=== PATIENT | female | born 1975 | race Caucasian/White ===

== ENCOUNTER 2024-01-28 01:57 | Inpatient (IN) | payer OTHER, SELFPAY ==
[2024-01-27 16:09] VITALS: BP 201/112
[2024-01-27 16:43] LABS: % Basophils 0.5 % (0-2); % Eosinophils 2.8 % (0-6); % Immature Granulocytes 0.4 % (0-0.5); % Lymphocytes 30.9 % (20.5-51.1); % Monocytes 5.4 % (1.7-9.3); Absolute Basophils 0.1 10^3/uL (0-0.2); Absolute Eosinophils 0.3 10^3/uL (0-0.7); Absolute Monocytes 0.5 10^3/uL (0.1-0.6); Absolute Neutrophils 5.9 10^3/uL (1.4-6.5); Hematocrit 38.2 % (37.0-47.0); Hemoglobin 13.1 g/dL (12.0-16.0); Mean Corp Hgb Conc. 34.3 g/dL (33.0-37.0); Mean Corpuscular Hgb 28.1 pg (27.0-31.0); Mean Platelet Volume 8.8 fL (7.4-10.4); Nucleated Red Blood Cells % 0 %; Platelet Count 306 10^3/uL (130-400); Red Blood Cell Count 4.66 10^6/uL (4.20-5.40); Red Cell Dist. Width 14.3 % (11.5-14.5); White Blood Cell Count 9.8 10^3/uL (4.8-10.8)
[2024-01-27 16:52] LABS: ALT (SGPT) 34 U/L (0-35); AST (SGOT) 32 U/L (14-36); Albumin 4.4 g/dl (3.5-5.0); Alkaline Phosphatase 107 U/L (38-126); Blood Urea Nitrogen 14 mg/dl (7-17); Calcium 8.5 mg/dl (8.4-10.2); Carbon Dioxide 26 mmol/L (22-30); Chloride 105 mmol/L (98-107); Glucose 101 mg/dl (70-99); Potassium 3.8 mmol/L (3.5-5.1); Sodium 136 mmol/L (135-145); Total Bilirubin 0.9 mg/dl (0.2-1.3); Total Protein 6.9 g/dl (6.3-8.2); eGFR > 60.00
[2024-01-27 17:03] LABS: Troponin I 0.013 ng/ml
--- NOTE | 2024-01-27 19:26 | ED.GENMED ---
History of Present Illness
<Tabatha Jurado ALIGNER TYPEWRITER - Last Filed: 01/28/24 00:00>
General
Chief Complaint: Breathing Problem
Source: patient
Exam Limitations: none
Time Seen by Provider: 01/27/24 19:25
Nursing documentation reviewed up to this point in time: agreed with
Travel History
Have you had any contact with someone who has COVID-19?: No
Do you have any symptoms of coronavirus? Fever > 100 degrees, chills, cough, shortness of breath, sore throat, loss of taste or smell, muscle aches, or headache?: No
History of Present Illness
History of Present Illness:
48-year-old female with history of migraines states she has progressively worsening SOB and fatigue since yesterday. Walking up steps last night, today, walking across the room. 5,4 and 3 days ago had fever, body aches, chills, with neg home Covid
tests. Denies chest pain, n/v/d/c. No recent travel.
Past History
<aTbatha Jurado, ALIGNER TYPEWRITER - Last Filed: 01/28/24 00:00>
Past History
ED Past Medical History: None
ED Past Surgical History: Tonsilectomy
Social History
Tobacco: Non-smoker
Alcohol: Occasional
Living: with family
Employment: Employed
Review of Systems
<Tabatha Jurado, ALIGNER TYPEWRITER - Last Filed: 01/28/24 00:00>
Review of Systems
Allergies reviewed?: Yes
All Other Systems: ROS reviewed and negative except as documented in HPI and ROS
Constitutional: Reports fatigue; Denies fever
Respiratory: Reports trouble breathing; Denies cough
Cardiac: Denies chest pain or syncope
ABD/GI: Denies abdominal pain or nausea
: Denies dysuria or difficulty voiding
Musculoskeletal: Reports no symptoms
Skin: Reports no symptoms
Neurological: Reports no symptoms
Phy Exam
<Tabatha Jurado, ALIGNER TYPEWRITER - Last Filed: 01/28/24 00:00>
Physical Exam
Physical Exam:
GENERAL: No acute distress. A&Ox3.
CONSTITUTIONAL: Afebrile.
EYES: PERRL, conjunctivae normal
Neck: Supple
ENMT: moist mucus membranes, Pharynx nl
RESPIRATORY: Regular respirations, nonlabored, lungs clear.
CARDIOVASCULAR: Regular rate and rhythm, no murmurs, no rubs.
GI: Soft, nontender, normal BS
MUSCULOSKELETAL: Moves with ease. Well perfused.
SKIN: Warm, dry, pink
PSYCH: Normal mood and affect. Well kept, interactive and appropriate
NEUROLOGIC: Awake, alert and oriented. No focal neurological deficits
Scores
<Tabatha Jurado, ALIGNER TYPEWRITER - Last Filed: 01/28/24 00:00>
Heart Failure Risk
Heart Failure Risk Score: Yes
History of Stroke or TIA: No
History of intubation for respiratory distress: No
Heart rate on ED arrival >/= 110: No
SaO2 <90% on arrival on room air: No
HR >/=110 during 3min walk test (or too ill to perform test): Yes
ECG has acute ischemic changes: No
Urea >/=12mmol/L (BUN 33.6mg/dL): No
Serum CO2>/=35mmol/L: No
Troponin I or T elevated to KS Level (0.4mg/dL): No
NT-proBNP >/=5,000ng/L (5,000pg/ml): No
HF Risk Score: 2
Admission Status: MEDIUM RISK 9.2% Consider observation or discharge to home with homecare & f/u visit to PCP/[employer], or SNF for treatment
Course
<Tabatha Jurado, ALIGNER TYPEWRITER - Last Filed: 01/28/24 00:00>
Orders/Labs/Results
Orders:
Orders
01/27/24 16:11
Electrocardiogram (*1) Urgent
Reason for Study: Chest Pain
EKG- Treatment ONCE
01/27/24 16:13
Chest [CR Chest - 2 Views ] Urgent
Comment:
Reason For Exam: sob/kendall
01/27/24 16:25
Complete Blood Count/With Diff Urgent
Comprehensive Metabolic Panel Urgent
NT-proBNP Urgent
Comment: ADD ON
Troponin I Urgent
01/27/24 19:27
Add On- LAB Urgent
Tests Added?: BNP
01/27/24 19:54
COVID-19 Antigen Urgent
Source: Nasal Swab
Influenza A+B Rapid Molecular Urgent
ARTI Source: Nasal Swab
Specimen Description:
01/27/24 20:42
Ipratropium/Albuterol Sulfate [Duoneb] 3 ml INH R NOW STA
01/27/24 20:54
D-Dimer Urgent
01/27/24 22:57
Furosemide [Lasix] 40 mg IV NOW STA
01/27/24 23:14
Furosemide [Lasix] 40 mg PO NOW STA
Potassium Chloride [KCl] 40 meq PO NOW STA
01/27/24 23:31
Aspirin Chewable [Low Strength Aspirin] 324 mg PO NOW STA
Enalaprilat [Vasotec] 0.625 mg IV NOW STA
Abnormal Lab Results
01/27/24
16:25
Creatinine 0.5 L mg/dL
(0.6-1.0)
Glucose 101 H mg/dl
(70-99)
01/27/24 16:25
01/27/24 16:25
Vital Signs
Initial and Last Documented VS:
Initial Vital Signs
Temp Pulse Resp BP Pulse Ox
98.6 F 82 24 201/112 99
01/27/24 16:09 01/27/24 16:09 01/27/24 16:09 01/27/24 16:09 01/27/24 16:09
Last Documented Vital Signs
Temp Pulse Resp BP Pulse Ox
98.6 F 94 15 199/122 96
01/27/24 16:09 01/27/24 23:45 01/27/24 23:45 01/27/24 23:33 01/27/24 23:33
<Jimbo Naqvi, DO - Last Filed: 01/27/24 23:29>
Orders/Labs/Results
Orders:
Orders
01/27/24 16:11
Electrocardiogram (*1) Urgent
Reason for Study: Chest Pain
EKG- Treatment ONCE
01/27/24 16:13
Chest [CR Chest - 2 Views ] Urgent
Comment:
Reason For Exam: sob/kendall
01/27/24 16:25
Complete Blood Count/With Diff Urgent
Comprehensive Metabolic Panel Urgent
NT-proBNP Urgent
Comment: ADD ON
Troponin I Urgent
01/27/24 19:27
Add On- LAB Urgent
Tests Added?: BNP
01/27/24 19:54
COVID-19 Antigen Urgent
Source: Nasal Swab
Influenza A+B Rapid Molecular Urgent
ARTI Source: Nasal Swab
Specimen Description:
01/27/24 20:42
Ipratropium/Albuterol Sulfate [Duoneb] 3 ml INH R NOW STA
01/27/24 20:54
D-Dimer Urgent
01/27/24 22:57
Furosemide [Lasix] 40 mg IV NOW STA
01/27/24 23:14
Furosemide [Lasix] 40 mg PO NOW STA
Potassium Chloride [KCl] 40 meq PO NOW STA
01/27/24 23:31
Aspirin Chewable [Low Strength Aspirin] 324 mg PO NOW STA
Enalaprilat [Vasotec] 0.625 mg IV NOW STA
Abnormal Lab Results
01/27/24
16:25
Creatinine 0.5 L mg/dL
(0.6-1.0)
Glucose 101 H mg/dl
(70-99)
01/27/24 16:25
01/27/24 16:25
Vital Signs
Initial and Last Documented VS:
Initial Vital Signs
Temp Pulse Resp BP Pulse Ox
98.6 F 82 24 201/112 99
01/27/24 16:09 01/27/24 16:09 01/27/24 16:09 01/27/24 16:09 01/27/24 16:09
Last Documented Vital Signs
Temp Pulse Resp BP Pulse Ox
98.6 F 94 15 199/122 96
01/27/24 16:09 01/27/24 23:45 01/27/24 23:45 01/27/24 23:33 01/27/24 23:33
<Tabatha Jurado NP - Last Filed: 01/28/24 00:00>
MDM/Problems Addressed
Differential Diagnosis Includes:
Covid, Flu, PNA, CHF, PE, postviral cardiomyopathy
MDM/Problems Addressed:
48-year-old female with history of migraines states she has progressively worsening SOB and fatigue since yesterday. Walking up steps last night, today, walking across the room. 5,4 and 3 days ago had fever, body aches, chills, with neg home Covid
tests. Denies chest pain, n/v/d/c. No recent travel.
NAD, Afebrile
01/27/2024 1927 PM
CBC normal
CMP: Normal
Troponin: Normal
BNP: 434
Chest x-ray: Radiology report read: IMPRESSION:
Heart and pulmonary vascularity at least top normal.
Cannot exclude mild CHF or acute pulmonary edema.
01/27/2024 2039 PM
COVID-negative
Influenza negative
01/27/20246 PM
D-dimer negative
01/27/2024 2330 PM
After DuoNeb patient states not much difference, this examiner ambulated her around the emergency department pod 1 and her pulse ox dropped to 93 with a heart rate up to 120 and her feeling short of breath.
Case discussed with Dr. Naqvi who examined patient.
Lasix 40 mg IV given
48-year-old female with increasing KENDALL over the past 2 days, chest x-ray showing top normal vascularity, tachycardia and SOB and desaturates when ambulating, hypertensive
Plan: Admit to hospitalist, cardiology evaluation
<Tabatha Jurado ALIGNER TYPEWRITER - Last Filed: 01/28/24 00:00>
*Pulse Oximetry
Patient hypoxic: no
*EKG
EKG Intrepretation Date: 01/27/24
Interpretation: normal
Rate: normal
Rhythm: sinus
Como: normal axis
Interval: normal interval
QRS Pattern: normal QRS
Ischemia: no ischemia
*Critical Care Note
Total Time (30-74mins, 75-104mins- exclusive of procedures): Not Applicable
<Jimbo Naqvi DO - Last Filed: 01/27/24 23:29>
Update Note
Update Note:
11:30 PM patient's been persuaded to stay she is hypertensive I believe is in her best interest
ED Attending Note
<Tabatha Jurado ALIGNER TYPEWRITER - Last Filed: 01/28/24 00:00>
-
Portions of this chart may have been created with voice recognition software.� Occasional wrong word or��sound alike� substitutions may have occurred due to the inherent limitations of voice recognition software.
<Jimbo Naqvi DO - Last Filed: 01/27/24 23:29>
ED Attending Note
Patient seen and examined by attending physician: Yes
I performed the substantive portion of visit, reviewed & personally made and approve the management plan that is documented in note by myself or FAHAD.: Yes
ED Attending Note:
Seen with ALIGNER TYPEWRITER examined independently agree with assessment and plan 48-year-old female presents with dyspnea on exertion, recent viral type syndrome with documented fever here she is tachycardic dyspneic with exertion, chest x-ray proBNP noted I
recommended admission for IV diuresis, cardiology consultation echocardiogram etc. patient states she has to go home to take care of her elderly mother, will come back first thing in the morning
Discharge Plan
Departure
Patient Disposition: Admit
Date of Disposition: 01/27/24
Time of Disposition: 23:25
Presentation/result/management discussed w/ accepting MD/DO: Hospitalist
Condition: Fair
Discharge Problem:
Hypertensive urgency
Prescriptions:
No Action
multivitamin Tablet
1 tab PO DAILY
ibuprofen 200 mg Capsule
400 mg PO BID PRN (Reason: mild pain/fever)
ascorbic acid (vitamin C) [Vitamin C] 500 mg Tablet
500 mg PO DAILY
cholecalciferol (vitamin D3) [Vitamin D3] 25 mcg (1,000 unit) Tablet
25 mcg PO DAILY
Glucosamine Chondroitin 550-30-1 mg Capsule
1 cap PO DAILY
Referrals:
Ivette Pelaez CRNP [Family Provider] -
Interventions
Interventions:
*Risk Screen - Suicide Last Done: 01/27/24 16:07
*General Assessment Last Done: 01/27/24 16:07
*Neglect/Abuse Screening Last Done: 01/27/24 16:07
ED- Cardiac Assessment Last Done: 01/27/24 19:31
ED- Pulmonary Assessment Last Done: 01/27/24 19:31
[2024-01-27 20:08] LABS: NT-proBNP 434 pg/ml
[2024-01-27 20:21] LABS: COVID-19 Antigen Negative (Negative)
[2024-01-27] MEDS: DUONEB 3 ML INH (20:47)
[2024-01-27 21:36] VITALS: BP 158/91
[2024-01-27 21:40] VITALS: BP 164/96
[2024-01-27 21:43] VITALS: BP 183/98
[2024-01-27 23:14] VITALS: BP 205/120
[2024-01-27 23:33] VITALS: BP 199/122
[2024-01-27] MEDS: KCL 40 MEQ PO (23:43)
[2024-01-27] MEDS: LOW STRENGTH ASPIRIN 324 MG PO (23:43)
[2024-01-27] MEDS: VASOTEC 0.625 MG IV (23:44)
[2024-01-27] MEDS: LASIX 40 MG IV (23:49)
[2024-01-28] VITALS (10 sets, daily range): BP systolic 119–180; BP diastolic 74–107; BMI 45.5
--- NOTE | 2024-01-28 00:26 | HPS.HSE ---
Family Physician
-
Family Physician: KIRK Morton
Chief Complaint
-
shortness of breath
History of Present Illness
Ms. Helena Lopes is a 48 yo woman with hx migraines presents with worsening shortness of breath since yesterday following a viral illness.
Patient states several days ago she developed fever up to 102, body aches and chills. She took a home covid test that was negative. Over the past two days she has had progressive shortness of breath with minimal exertion. When going up flight of
stairs today she felt she couldn't catch her breath and decided to come to the ER. No chest pain or tightness. She does not feel short of breath at rest. She was given inhalers which may have helped slightly, no history of smoking or asthma.
Patient states she always has LE swelling from knee arthritis.
Patient walked with me around the [facility] and [facility] [place] appeared more tachypneic and was tachycardic > 100. She feels better at rest. She has no shortness of breath when laying flat.
Fevers currently resolved. She states she has stayed hydrated during her illness. No nausea/vomiting/diarrhea. No abdominal pain.
Medical History
Past Medical History
Past Medical History: Reports Other (migraine)
Past Surgical History: Reports Tonsilectomy
Social History
Tobacco: Non-smoker
Alcohol: Occasional
Family History
Family History: Not pertinent
Allergies / Home Medications
Allergies reflects when Allergies were last updated in [facility].
Home Medications with original date entered in [facility]
Allergy/Medication List:
Allergies
Allergy/AdvReac Type Severity Reaction Status Date / Time
No Known Allergies Allergy Verified 07/15/22 08:17
Home Medications
ascorbic acid (vitamin C) 500 mg tablet (Vitamin C) 500 mg PO DAILY 01/27/24
cholecalciferol (vitamin D3) 25 mcg (1,000 unit) tablet (Vitamin D3) 25 mcg PO DAILY 01/27/24
glucosamine sulf dipot chlr,msm,chond 550 mg-C 30 mg-juice 1 mg capsule (Glucosamine Chondroitin) 1 cap PO DAILY 01/27/24
ibuprofen 200 mg capsule 400 mg PO BID PRN mild pain/fever 01/27/24
multivitamin 1 tab PO DAILY 01/27/24
Review of Systems
-
History Source: Patient
A 12 point ROS was completed and negative except as noted: Yes
Physical Exam
Vital Signs
Vital Signs
Temp Pulse Resp BP Pulse Ox
98.6 F 77 15 180/101 96
01/27/24 16:09 01/28/24 00:00 01/28/24 00:00 01/28/24 00:00 01/28/24 00:00
Physical Exam
General: No Apparent Distress and Other (tachypneic only after exertion )
Respiratory: No Wheezes or Rales
Cardiac: S1/S2 and Regular Rhythm
GI: Soft and Non Tender
Musculoskeletal: Edema, Left Lower Extremity and Edema, Right Lower Extremity (chronic per patient )
Skin: Warm and Dry; No Rash
Neuro: AO x 3
Psych: Calm
Laboratory Results
-
01/27/24 16:25
01/27/24 16:25
Laboratory Results
Total Bilirubin 0.9 mg/dl (0.2-1.3) 01/27/24 16:25
AST 32 U/L (14-36) 01/27/24 16:25
ALT 34 U/L (0-35) 01/27/24 16:25
Alkaline Phosphatase 107 U/L (38-126) 01/27/24 16:25
Troponin I 0.013 ng/ml 01/27/24 16:25
Data Reviewed
-
Diagnostic Radiology: Report Reviewed by me
Lab Data: Labs Reviewed by me
Impression/Plan
-
Ms. Helena Probasco is a 48 yo woman with hx migraines presents with worsening shortness of breath since yesterday following a viral illness.
Triage VS: T 98.6, P 82, RR 24, BP 201/112, SpO2 99%
LABS: WBC 9.8, Hg 13.1, PLT 306, Na 136, K+ 3.8, Cl 105, CO2 26, Cr 0.5, Glucose 101, liver enzymes WNL, Trop 0.013
covid negative
flu negative
CXR
IMPRESSION:
Heart and pulmonary vascularity at least top normal.
Cannot exclude mild CHF or acute pulmonary edema.
MAR: Enalapril, lasix, duonebs, aspirin
Acute shortness of breath
Recent Viral illness
-covid and flu negative
-patient was given lasix in the ER with some urinary output and no change in symptoms
-given presentation not typical for heart failure, concern raised for PE despite negative d-dimer and will obtain chest CT
-admit to telemetry
-F/U chest CT results
-TTE tomorrow
-consider pulm consult if above without diagnosis
-cardiology consult if e/o post viral cardiomyopathy
Hypertensive Urgency
-patient with elevated BP in setting of stress from illness and ER visit
-IV Enalapril PRN
-patient has a BP cuff at home and will continue to monitor post discharge
DVT PPx lovenox subQ to start tomorrow (post CT results)
FULL CODE
[2024-01-28 02:15] LABS: HCG, Serum Qualitative Screen Negative
[2024-01-28 07:03] LABS: Hematocrit 36.1 % (37.0-47.0); Hemoglobin 12.2 g/dL (12.0-16.0); Mean Corp Hgb Conc. 33.8 g/dL (33.0-37.0); Mean Corpuscular Hgb 28.2 pg (27.0-31.0); Mean Corpuscular Volume 83.6 fL (81.0-99.0); Mean Platelet Volume 9.2 fL (7.4-10.4); Platelet Count 299 10^3/uL (130-400); Red Blood Cell Count 4.32 10^6/uL (4.20-5.40); Red Cell Dist. Width 14.2 % (11.5-14.5); White Blood Cell Count 10.2 10^3/uL (4.8-10.8)
[2024-01-28 07:35] LABS: Blood Urea Nitrogen 11 mg/dl (7-17); Calcium 8.4 mg/dl (8.4-10.2); Carbon Dioxide 25 mmol/L (22-30); Chloride 101 mmol/L (98-107); Estimated Creatinine Clearance > 125 ml/min; Glucose 96 mg/dl (70-99); Magnesium 1.9 mg/dl (1.6-2.3); Potassium 3.9 mmol/L (3.5-5.1); Sodium 136 mmol/L (135-145); eGFR > 60.00
[2024-01-28] MEDS: DUONEB 3 ML INH ×4 (07:40→19:37)
[2024-01-28] MEDS: VITAMIN D3 (cholecalciferol) 25 MCG PO (08:46)
--- NOTE | 2024-01-28 09:12 | W.PN.UPDATE ---
Update Note
Progress Note Update
Patient seen and examined after post midnight admission. No new complaints. Vital signs stable. No acute distress, awake alert and orient x 3. Regular rate and rhythm, normal S1-S2. Clear to auscultation bilaterally. Cranial 2-12 are intact.
Patient had a CT angiogram of the chest without pulmonary embolism or other acute findings. COVID/flu negative. Afebrile. No leukocytosis. proBNP noted and patient without pulmonary edema. Considering patient's ongoing symptoms as well as
reports of random episodes of lower extremity swelling it is reasonable to check an echocardiogram. Will also consult pulmonary.
--- NOTE | 2024-01-28 09:53 | CON.PUL ---
Consultation
Consultation Request
Date/Time Consultation Requested: 01/28/2024-10 AM
Date/Time Consultation Performed: 01/28/2024-10:30 AM
Requesting Provider: Dr. Kaye
Performing Provider: Dr. Villanueva
Reason for Consultation: Shortness of breath
Medical History
-
Chief Complaint: Shortness of breath
History of Present Illness:
48-year-old female non-smoker without cardiopulmonary history presented with fairly sudden onset shortness of breath, severe dyspnea with minimal exertion following a viral illness found to have negative CT chest-pulmonary was consulted for
shortness of breath 01/28/2024. Patient states that in the last 48 hours she noticed significant shortness of breath with minimal exertion. She states that she does not like to go to doctors and she was scared with the degree of shortness of breath
just going ambulating on level ground for 10 feet. She also was tachycardic. She denies any chest pain, chest tightness, wheezing, previous asthma, inhalational injury, previous smoking, did not complain of abdominal pain, nausea, vomiting,
diarrhea or other constitutional symptoms.
Past Medical History
Past Medical History: None (Migraines. Obesity. Tonsillectomy.)
Social History
Tobacco: Non-smoker
Alcohol: Occasional
Occupational Exposures: No known asbestos exposure
Environmental Exposures: no known tuberculosis exposure
Family History
Family History: Other (No clotting disorder history and family)
Allergies / Home Medications
Allergies
Allergy/AdvReac Type Severity Reaction Status Date / Time
No Known Allergies Allergy Verified 07/15/22 08:17
Home Medications
Medication Instructions Recorded Confirmed Last Taken Type
ascorbic acid (vitamin C) 500 mg 500 mg PO DAILY 01/27/24 01/27/24 Unknown History
tablet (Vitamin C)
cholecalciferol (vitamin D3) 25 25 mcg PO DAILY 01/27/24 01/27/24 Unknown History
mcg (1,000 unit) tablet (Vitamin
D3)
glucosamine sulf dipot 1 cap PO DAILY 01/27/24 01/27/24 Unknown History
chlr,msm,chond 550 mg-C 30 mg-juice
1 mg capsule (Glucosamine
Chondroitin)
ibuprofen 200 mg capsule 400 mg PO BID PRN mild pain/fever 01/27/24 01/27/24 Unknown History
multivitamin 1 tab PO DAILY 01/27/24 01/27/24 Unknown History
Review of Systems
-
Unable to Obtain full review of systems at this time due to: Other (Per HPI)
Vitals / Labs / Diagnostic Testing
Vital Signs
Temp Pulse Resp BP Pulse Ox
98.3 F 72 16 131/77 96
01/28/24 07:00 01/28/24 08:15 01/28/24 08:15 01/28/24 07:09 01/28/24 07:44
Lab Data
01/28/24 05:47
01/28/24 05:47
Microbiology
01/27/24 19:54 Nasal Swab Influenza Types A & B (GEMMA) - Final
Negative for Influenza A & B, NAAT
Negative results must be combined with clinical observations
and patient history.
Nucleic Acid Amplification test (NAAT)performed on the
[employer] platform.
Diagnostic Testing:
Physical Exam
-
Exam:
Well-nourished and well-developed in no apparent distress
HEENT-atraumatic, normocephalic
Neck-supple, no JVD, no bruit
Heart-regular rate and rhythm-no murmurs, rubs or gallops
Chest-clear to auscultation, no wheezes, crackles
Back-no tenderness
Abdomen-soft, nontender, nondistended, no hepatosplenomegaly
Extremities-no cyanosis, clubbing, lower extremity edema noted
Integument-intact, no rashes, lesions or ecchymosis
Neurology-alert and oriented, nonfocal motor and sensory exam
Assessment
-
48-year-old female non-smoker without cardiopulmonary history presented with fairly sudden onset shortness of breath, severe dyspnea with minimal exertion following a viral illness found to have negative CT chest-pulmonary was consulted for
shortness of breath 01/28/2024.
Assessment
Sudden onset shortness of breath after viral illness
Pulmonary vascularity top normal-will need to exclude CHF
Obesity
At risk for obstructive sleep apnea
Conditions present prior to admission:
Migraines.
Obesity.
Tonsillectomy.
Plan
Fairly sudden onset severe shortness of breath the patient was a non-smoker, no previous cardiopulmonary disease with chronic lower extremity edema-differential peripheral pulmonary emboli, heart failure, etc.
Supplemental oxygen as needed
Incentive spirometry
Nebulizers if needed-currently not bronchospastic
CT chest reviewed-no central pulmonary emboli
Check D-dimer
Consider VQ scan
Check lower extremity ultrasound
Check echocardiogram
Gentle diuresis
Monitor renal function, electrolytes, intake/output, lower extremity edema and weight
Replace electrolytes as needed
DVT prophylaxis-on Lovenox
Nutrition
Reviewed CT chest with radiology personally-very low probability for pulmonary embolism
Outpatient pulmonary/sleep disorders [id number], sleep study
Diagnostic data:
Chest x-ray 07/15/2022-NAD
Chest x-ray 01/27/2024-heart and pulmonary vascularity at top normal, cannot exclude mild CHF
CT chest 01/28/2024-no evidence for central pulm embolism, mild cardiomegaly, minor areas of subsegmental atelectasis
Data Reviewed
-
EKG: Report reviewed by me
Radiology: Image personally visualized and interpreted and Report reviewed by me
CT Scan: Image personally visualized and interpreted and Report reviewed by me
Medical Tests (Nuc Med, Echo etc): Report reviewed by me
Labs: Labs reviewed by me
Old Records: Reviewed
Total Time Spent with Patient (in minutes): 55
--- NOTE | 2024-01-28 10:25 | CARDSERVLU ---
Echocardiogram with [facility] completed after protocol screening completed. Allergies verified.
Patent IV site: _L FA____
IV site flushed with 0.9% NaCl pre and post administration.
Diluted bolus method utilized to enhance visualization of ventricular nuñez.
Total volume given: __2.5__ mL
Patient tolerated all procedures well without complications.
[2024-01-28 12:55] LABS: D-Dimer 0.31 ug/mlFEU (0.00-0.50)
--- NOTE | 2024-01-28 16:03 | PTCARENOTE ---
Received pt from ER. Pt awake,alert and oriented x3. Pt has no c/o pain VSS 97% on RA. Pt NSR-ST on tele. Pt oriented to room,call santiago within reach,plan of care ongoing.
[2024-01-28] MEDS: LOVENOX 40 MG SC (17:22)
[2024-01-29 03:34] VITALS: BP 163/99
[2024-01-29 07:00] VITALS: BP 152/98
[2024-01-29] MEDS: DUONEB 3 ML INH ×3 (07:17→15:11)
--- NOTE | 2024-01-29 08:06 | W.PN.PUL.V3 ---
Today's Communication / Plan
-
Antihypertensives
Cardiology evaluation
Outpatient pulmonary/sleep disorders follow-up
Assessment
-
48-year-old female non-smoker without cardiopulmonary history presented with fairly sudden onset shortness of breath, severe dyspnea with minimal exertion following a viral illness found to have negative CT chest-pulmonary was consulted for
shortness of breath 01/28/2024.
Assessment
Sudden onset shortness of breath after viral illness
Pulmonary vascularity top normal-will need to exclude CHF
Hypertensive urgency
Diastolic dysfunction-stage III
Obesity
At risk for obstructive sleep apnea
Conditions present prior to admission:
Migraines.
Obesity.
Tonsillectomy.
Plan
Fairly sudden onset severe shortness of breath the patient was a non-smoker, no previous cardiopulmonary disease with chronic lower extremity edema-differential peripheral pulmonary emboli, systolic or diastolic heart failure, etc.
Supplemental oxygen as needed
Incentive spirometry
Nebulizers if needed-currently not bronchospastic
CT chest reviewed-no central pulmonary emboli
D-dimer negative
Lower extremity ultrasound negative for DVT
Echocardiogram with stage III diastolic dysfunction and preserved LV function and no significant valvular disease
Continue gentle diuresis
Monitor renal function, electrolytes, intake/output, lower extremity edema and weight
Replace electrolytes as needed
Cardiology evaluation
Hypertension needs to be controlled-consider secondary causes with fairly new onset severe hypertension
DVT prophylaxis-on Lovenox
Nutrition
Reviewed CT chest with radiology personally-very low probability for pulmonary embolism
Outpatient pulmonary/sleep disorders [id number], sleep study
Diagnostic data:
Chest x-ray 07/15/2022-NAD
Chest x-ray 01/27/2024-heart and pulmonary vascularity at top normal, cannot exclude mild CHF
CT chest 01/28/2024-no evidence for central pulm embolism, mild cardiomegaly, minor areas of subsegmental atelectasis
Subjective Data
-
Date of Service:
Date of Service: January 29, 2024
Chief Complaint: Pulmonary Follow Up and Dyspnea Follow Up
Subjective:
Feels a little better, still has dyspnea exertion but improved, no chest pain, pleurisy, productive cough
Review of Systems
General: Other (Per HPI)
Objective Data
Data Reviewed
Vital Signs / I&O:
Vital Signs
Temp Pulse Resp BP Pulse Ox
98.1 F 92 20 163/99 97
01/29/24 03:34 01/29/24 07:20 01/29/24 07:20 01/29/24 03:34 01/29/24 07:20
SaO2: 97
Physical Exam
General: Respiratory Distress (n) and Comfortable
HEENT: Normocephalic, Anicteric and Moist Mucous Membranes
Cardiovascular: Regular Rhythm
Respiratory: Wheeze (n), Crackles (n), Rhonchi (n), Non-Labored Respirations and Accessory Resp Muscle Use (n)
GI: Soft, Non Distended and Non Tender
Neurology: Awake, Alert and No Motor Deficits
Skin: Warm, Good Color, Cyanosis (n), Jaundice (n) and Rash
Labs/Micro/Reports
Lab Data
01/28/24 05:47
01/28/24 05:47
Microbiology
01/27/24 19:54 Nasal Swab Influenza Types A & B (GEMMA) - Final
Negative for Influenza A & B, NAAT
Negative results must be combined with clinical observations
and patient history.
Nucleic Acid Amplification test (NAAT)performed on the
[employer] platform.
[2024-01-29] MEDS: FLUSH (NSS) 1 FLUSH IV (08:59)
[2024-01-29] MEDS: VITAMIN D3 (cholecalciferol) 25 MCG PO (08:59)
--- NOTE | 2024-01-29 09:34 | W.PN.HOSP.TC ---
Addendum entered and electronically signed by Eyal Kaye MD 01/29/24 16:19:
Case discussed with cardiology. Patient is medically cleared for discharge with close outpt follow up. PCP, Ivette BRADLEY, updated over [employer].
Original Note:
Today's Communication/Plan
-
d/c later today if OK with cards
Assessment / Plan
Assessment / Plan
Gen: NAD, AAOx3.
Eyes: EOMI, PERRLA, no scleral icterus.
Neck: supple.
CV: RRR, +S1/S2, no m/r/g.
Resp: CTAB, no rales, wheezes, or rhonchi.
Abd: +BS, soft, NT, ND
Skin: No rashes.
Neuro: CN 2-12 intact, non-focal.
Psych: Normal mood and affect.
CXR: Heart and pulmonary vascularity at least top normal. Cannot exclude mild CHF or acute pulmonary edema.
CTA chest: No evidence of central pulmonary embolism. Mild cardiomegaly.
B/L LE U/S: No evidence of right or left lower extremity deep venous thrombosis.
Echo: Technically difficult study - Lumason used.
�Normal left ventricular chamber size. Normal left ventricular systolic
�function. Normal regional wall motion. Mild concentric left ventricular
�hypertrophy. Left ventricular ejection fraction is 55-60%.
�Stage III diastolic dysfunction suggestive of restrictive filling pattern and
�increased filling pressures.
�No significant valvular disease
SOB:
-imaging above, no PE on CTA.
-COVID/flu NEG
-proBNP 434 (chopra zone for age), CXR above, possible mild CHF/acute pulm edema
-G3DD on echo, c/s cards
Other problems:
Hypertensive urgency: Start Lisinopril 10mg daily.
Morbid Obesity due to excess calories: Encourage weight loss, affects all aspects of care
FULL/Lovenox
Anticipated Discharge: Today
Subjective/Interval History
-
Date of Service: January 29, 2024
SOB improving. Notes that she can now ambulate to the bathroom without getting SOB.
Objective Data
-
Vital Signs:
Vital Signs
Temp Pulse Resp BP Pulse Ox
97.8 F 92 20 152/98 96
01/29/24 07:00 01/29/24 07:20 01/29/24 07:20 01/29/24 07:00 01/29/24 08:58
--- NOTE | 2024-01-29 10:18 | CM ---
process excellence manager reviewed patient's chart and met with patient and patient states that she lives with her mother in a 2 story home, patient is independent with adl's and ambulation, no dme, patient drives patient has a prescription plan and patient uses
[facility] pharmacy.
PCP: Ivette Pelaez
Plan; Home when stable, no needs.
[2024-01-29 11:00] VITALS: BP 154/86
--- NOTE | 2024-01-29 11:56 | CON.CAR ---
Addendum entered and electronically signed by Beka Low MD 01/29/24 14:56:
I saw and examined the patient.
The AIR MOVING TECHNICIAN or PA's note was reviewed and I agree with the note.
Comment: General: Well developed, well nourished in NAD.
Neck: Supple, no JVD, HJR, carotids +2 B/L, no bruits bilaterally.
Heart: Non displaced PMI, RRR, no murmurs, No S3, S4, no rubs.
Lungs: Clear to auscultation bilaterally, no wheeze, rhonchi, rubs bilaterally,
normal expiratory phase.
Extremities: No clubbing, cyanosis or edema bilaterally.
Neuro: Grossly nonfocal, awake, alert and oriented x3.
Helena has no significant past medical history other than arthritis. She presents with shortness of breath which occurred suddenly while at work. This occurred while climbing steps. In the ER workup was unremarkable including a negative CAT scan.
She was admitted due to tachycardia with exertion and continued shortness of breath.
Workup so far has been negative including normal echocardiogram. Grade 3 diastolic dysfunction may be a nondescript finding. proBNP was minimally elevated although did not diurese much with IV Lasix. She has seen pulmonary and set up for sleep
study. I feel shortness of breath is not likely cardiac in etiology. We discussed possibly starting diuretic but elected to hold off for now. Will reassess her when seen in follow-up in the office. Will ambulate her in the hallways before
discharge.
Stable cardiology status for discharge.
Original Note:
Consultation
Consultation Request
Date/Time Consultation Requested: 01/29/2024
Date/Time Consultation Performed: 01/29/2024
Requesting Provider: Dr. Kaye
Performing Provider: Dr. Low
Reason for Consultation: SOB, diastolic dysfunction on echo
Medical History
-
History of Present Illness:
HPI: Helena is a 48 year old female with PMH of arthritis and obesity who presented to [facility] for evaluation of SOB. She reports she had sudden onset of SOB while at work. She was going up a flight of stairs at first when she felt more SOB than usual,
and then when walking across the room and to her car, she also noted more SOB. This prompted her to initially seek care at an urgent care, where she was found to be significantly hypertensive and was sent to ER for further evaluation. In ER, BP was
still significantly elevated and she still had SOB with ambulating and was noted to become tachycardic and tachypneic. She was admitted for further workup and evaluation. She had CT of chest which was negative for central PE and LE US was negative
for DVT. She also had chest xray which showed at least top normal pulmonary vascularity by report. She was given a dose of IV lasix and denied noting any significant improvement in her symptoms, although did note significant urine output. She had
echo this admission which noted preserved EF with no significant valvular disease, however did note grade 3 diastolic dysfunction. Given diastolic dysfunction and SOB, cardiology consulted. She reports she is feeling better today, however has not
ambulated other than to the bathroom. She reports no SOB with walking to use bathroom.
PMH:
Arthritis
Obesity
Past Medical History
Past Medical History: Other (In HPI)
Past Surgical History: Tonsilectomy
Social History
Tobacco: Non-Smoker
Alcohol: Occasional
Drug: None
Personal: Single
Living: With Family
Employment: Employed
Family History
Family History: Reviewed & Not Pertinent
Allergies / Home Medications
Allergy/AdvReac Type Severity Reaction Status Date / Time
No Known Allergies Allergy Verified 07/15/22 08:17
Medication Instructions Recorded Confirmed Type
ascorbic acid (vitamin C) 500 mg 500 mg PO DAILY Supplement 01/27/24 01/27/24 History
tablet (Vitamin C)
cholecalciferol (vitamin D3) 25 25 mcg PO DAILY Supplement 01/27/24 01/27/24 History
mcg (1,000 unit) tablet (Vitamin
D3)
glucosamine sulf dipot 1 cap PO DAILY Supplement 01/27/24 01/27/24 History
chlr,msm,chond 550 mg-C 30 mg-juice
1 mg capsule (Glucosamine
Chondroitin)
ibuprofen 200 mg capsule 400 mg PO BID PRN mild pain/fever 01/27/24 01/27/24 History
multivitamin 1 tab PO DAILY Supplement 01/27/24 01/27/24 History
Review of Systems
-
History Source: Patient
All other systems: Negative unless noted
Physical Exam
Vital Signs
Temp Pulse Resp BP Pulse Ox
97.9 F 82 16 154/86 96
01/29/24 11:00 01/29/24 11:21 01/29/24 11:21 01/29/24 11:00 01/29/24 11:21
Lab Results
01/28/24 05:47
01/28/24 05:47
Troponin I 0.013 ng/ml 01/27/24 16:25
Yaz-O-Ovjckictfeh Pept 434 pg/ml 01/27/24 16:25
Physical Exam
General: Well Developed, Well Nourished and No Apparent Distress
HEENT: Normocephalic, Anicteric and Moist Mucous Membranes
Respiratory: Clear and Non Labored Respirations
Cardiac: S1/S2 and Regular Rhythm
Musculoskeletal: No Clubbing, No Cyanosis and Edema
Skin: Warm and Dry
Neuro: AO x 3 and Nonfocal/Grossly Intact
Psych: Calm
Impression / Plan
-
PCP: Dr. Pelaez
Edge Brusher: None, initially seen by Dr. Low
Impression:
Presented with SOB
HTN urgency
Arthritis
Obesity
Echo 01/28/2024: EF 55 to 60%, mild concentric LVH, stage III diastolic dysfunction suggestive of restrictive filling pattern and increased filling pressures, no significant valvular disease
Plan:
-Presented with SOB. CT scan w/ very low probability for PE per pulmonary note. D-dimer wnl and LE US negative for DVT.
-CXR noted at least top normal pulmonary vascularity. Received 1 dose of IV lasix in ER with good urine output, but denies noting improvement in her symptoms, although has not ambulated this AM.
-Recommend she ambulate around the unit to see if she is symptomatic.
-For her HTN urgency, she was started on lisinopril 10mg daily with first dose given today, 01/28.
-BPs remain elevated.
-Echo 01/27 with preserved EF, mild cLVH and stage III diastolic dysfunction as noted above.
-ProBNP 434. Troponin negative.
-Will recheck weight today, 01/28. With elevated BP, CXR findings, SOB, and LE edema, would consider sending home on low dose lasix 20mg daily.
-BMP in 1 week.
-EKG reviewed. SR with no acute ischemic changes noted.
-Cardiac follow up arranged.
HPI: Helena is a 48 year old female with PMH of arthritis and obesity who presented to [facility] for evaluation of SOB. She reports she had sudden onset of SOB while at work. She was going up a flight of stairs at first when she felt more SOB than usual,
and then when walking across the room and to her car, she also noted more SOB. This prompted her to initially seek care at an urgent care, where she was found to be significantly hypertensive and was sent to ER for further evaluation. In ER, BP was
still significantly elevated and she still had SOB with ambulating and was noted to become tachycardic and tachypneic. She was admitted for further workup and evaluation. She had CT of chest which was negative for central PE and LE US was negative
for DVT. She also had chest xray which showed at least top normal pulmonary vascularity by report. She was given a dose of IV lasix and denied noting any significant improvement in her symptoms, although did note significant urine output. She had
echo this admission which noted preserved EF with no significant valvular disease, however did note grade 3 diastolic dysfunction. Given diastolic dysfunction and SOB, cardiology consulted. She reports she is feeling better today, however has not
ambulated other than to the bathroom. She reports no SOB with walking to use bathroom.
Data Reviewed
-
EKG: Tracing Personally Visualized and interpreted
Radiology: Report Reviewed by me
CT Scan: Report Reviewed by me
Ultrasound: Report Reviewed by me
Medical Tests (Nuc Med, Echo etc): Report Reviewed by me
Labs: Labs Reviewed by me
Old Records: Reviewed
[2024-01-29] MEDS: ZESTRIL 10 MG PO (12:13)
[2024-01-29 13:18] VITALS: BMI 44.0
[2024-01-29 15:00] VITALS: BP 153/79
--- NOTE | 2024-01-29 16:05 | PTCARENOTE ---
Pt AAO x3, MUKHERJEE well, OOB in room/woods, c/o 'feeling winded' after ambulation. VSS. telemetry:NSR; sinus tachy to 110's with activity. On room air- pulse ox 94%, no c/o SOB. Abd obese, soft, tariq PO well. Voids in BR without difficulty. Resting
in bed at present. Will continue to monitor.
--- NOTE | 2024-01-29 17:47 | W.DCSUMMARY ---
Discharge Summary
Discharge Data
Date of Admission: 01/28/24
Date of Discharge: 01/29/24
-
Pending Results: No
Hospital Course
Primary diagnoses:
Shortness of breath
Grade 3 diastolic dysfunction
Secondary diagnoses:
Hypertensive urgency
Morbid Obesity due to excess calories
Consultants:
Pulmonary
Cardiology
Imaging:
CXR: Heart and pulmonary vascularity at least top normal. Cannot exclude mild CHF or acute pulmonary edema.
CTA chest: No evidence of central pulmonary embolism. Mild cardiomegaly.
B/L LE U/S: No evidence of right or left lower extremity deep venous thrombosis.
Echo: Technically difficult study - Lumason used.
�Normal left ventricular chamber size. Normal left ventricular systolic
�function. Normal regional wall motion. Mild concentric left ventricular
�hypertrophy. Left ventricular ejection fraction is 55-60%.
�Stage III diastolic dysfunction�suggestive of restrictive filling pattern and
�increased filling pressures.
�No significant valvular disease
Hospital course: 48-year-old female who presented with chief complaint of shortness of breath as outlined in the H&P done on admission. Patient had a CT angiogram of the chest that did not show pulmonary embolism. Will rest of imaging above.
COVID and flu testing were negative. proBNP was 434 (chopra zone for age). Patient was seen in consultation by cardiology she had grade 3 diastolic dysfunction on echocardiogram. She was not in decompensated heart failure while hospitalized and
cardiology will follow her in the outpatient setting. She was placed on lisinopril for hypertensive urgency. Shortness of breath improved while hospitalized and she was discharged in medically stable condition.
Discharge Plan
-
Patient Disposition: Home (Routine Discharge)
Discharge Diagnosis/Procedures: Shortness of breath, grade 3 diastolic dysfunction, essential hypertension
Condition: Good
Diet: Low Cholesterol, Low Sodium and Other diet
Additional Diets: Heart healthy
Activity: As tolerated
Driving Restrictions: As prior to admission
Bathing Restrictions: None
Referrals:
Gayathri Brown CRNP [Specified Professional Personl] - 02/11/24 2:00 pm (You have a follow up visit with Dr. Low's ENVIRONMENTAL ASSISTANT, Gayathri, at the [place] office. Please call with questions.)
Ivette Pelaez CRNP [Family Provider] - in less than 1 week
Prescriptions:
New
lisinopril 10 mg Tablet
10 mg PO DAILY Qty: 30 0RF
Continued
multivitamin Tablet
1 tab PO DAILY
ascorbic acid (vitamin C) [Vitamin C] 500 mg Tablet
500 mg PO DAILY
cholecalciferol (vitamin D3) [Vitamin D3] 25 mcg (1,000 unit) Tablet
25 mcg PO DAILY
Glucosamine Chondroitin 550-30-1 mg Capsule
1 cap PO DAILY
Discontinued
ibuprofen 200 mg Capsule
400 mg PO BID PRN (Reason: mild pain/fever)
Discharge Orders:
Discharge Patient (As Directed); Ordered 01/29/24
Ordered By: Eyal Kaye
[2024-01-29] MEDS: LOVENOX SC (17:49)
== END 2024-01-29 18:13 | disposition home or self-care (01) | DRG 204 ==
LOC: 4 EAST ACU 01:57
PROVIDERS: Physician Assistant; Registered Nurse; ADMITTING PHYSICIAN Student in an Organized Health Care Education/Training Program; ATTENDING PHYSICIAN Internal Medicine; CONSULT PHYSICIAN Internal Medicine Cardiovascular Disease; CONSULT PHYSICIAN Internal Medicine Critical Care Medicine; EMERGENCY PHYSICIAN Emergency Medicine; FAMILY PHYSICIAN Nurse Practitioner Adult Health
DX: R06.02 Shortness of breath (principal); Z68.41 Body mass index [BMI] 40.0-44.9, adult; E66.01 Morbid (severe) obesity due to excess calories; I16.0 Hypertensive urgency; Z11.52 Encounter for screening for COVID-19
CPT/HCPCS: 71046; 71275; 80048; 80053; 83735; 83880; 84484; 84703; 85025; 85027; 85379; 87502; 87811; 93005; 93306; 93970; 94640; 96374; 96375; 99285; Q9950; Q9967

== ENCOUNTER → 2024-04-09 08:44 | Outpatient (REF) | payer OTHER, SELFPAY | LOC: WDC 08:44 | PROVIDERS: ATTENDING PHYSICIAN Nurse Practitioner Adult Health | DX: Z12.31 Encounter for screening mammogram for malignant neoplasm of breast (principal) | CPT/HCPCS: 77063; 77067 ==

== ENCOUNTER → 2024-04-09 09:18 | Outpatient (REF) | payer OTHER, SELFPAY ==
[2024-04-09 10:15] LABS: % Basophils 0.5 % (0-2); % Eosinophils 0.9 % (0-6); % Immature Granulocytes 0.4 % (0-0.5); % Lymphocytes 15.4 % (20.5-51.1); % Monocytes 4.4 % (1.7-9.3); % Neutrophils 78.4 % (42.2-75.2); Absolute Basophils 0.1 10^3/uL (0-0.2); Absolute Eosinophils 0.1 10^3/uL (0-0.7); Absolute Immature Granulocytes 0.1 10^3/uL (0-0.05); Absolute Lymphocytes 2.3 10^3/uL (1.2-3.4); Absolute Monocytes 0.7 10^3/uL (0.1-0.6); Absolute Neutrophils 11.7 10^3/uL (1.4-6.5); Hemoglobin 12.5 g/dL (12.0-16.0); Mean Corp Hgb Conc. 33.8 g/dL (33.0-37.0); Mean Corpuscular Hgb 29.3 pg (27.0-31.0); Mean Corpuscular Volume 86.7 fL (81.0-99.0); Mean Platelet Volume 9.1 fL (7.4-10.4); Nucleated Red Blood Cells % 0 %; Platelet Count 342 10^3/uL (130-400); Red Blood Cell Count 4.27 10^6/uL (4.20-5.40); Red Cell Dist. Width 14.2 % (11.5-14.5)
[2024-04-09 10:50] LABS: ALT (SGPT) 26 U/L (0-35); AST (SGOT) 22 U/L (14-36); Albumin 3.9 g/dl (3.5-5.0); Alkaline Phosphatase 104 U/L (38-126); Blood Urea Nitrogen 13 mg/dl (7-17); Calcium 8.9 mg/dl (8.4-10.2); Carbon Dioxide 23 mmol/L (22-30); Chloride 105 mmol/L (98-107); Glucose 100 mg/dl (70-99); HDL Cholesterol 48 mg/dl; LDL Cholesterol, Calculated 138 mg/dl; Potassium 4.3 mmol/L (3.5-5.1); Sodium 139 mmol/L (135-145); Total Bilirubin 0.6 mg/dl (0.2-1.3); Total Cholesterol 222 mg/dl (50-199); Total Protein 6.3 g/dl (6.3-8.2); Triglyceride 181 mg/dl (10-149); Very Low Density Lipoprotein 36 mg/dl (0-30); eGFR > 60.00
[2024-04-09 11:06] LABS: Vitamin D, 25-OH*** 27.9 ng/mL (30-80)
[2024-04-09 11:19] LABS: TSH Reflex To Free T4 1.63 uIU/ml (0.47-4.68)
== END ==
LOC: REG 09:18
PROVIDERS: ATTENDING PHYSICIAN Nurse Practitioner Adult Health
DX: I10 Essential (primary) hypertension (principal); R73.01 Impaired fasting glucose; E55.9 Vitamin D deficiency, unspecified; E78.2 Mixed hyperlipidemia; Z00.00 Encounter for general adult medical examination without abnormal findings; Z79.899 Other long term (current) drug therapy; Z13.29 Encounter for screening for other suspected endocrine disorder
CPT/HCPCS: 36415; 80053; 80061; 82306; 83036; 84443; 85025

== ENCOUNTER → 2024-05-28 10:08 | Outpatient (REF) | payer OTHER, SELFPAY | LOC: RCS 10:08 | PROVIDERS: ATTENDING PHYSICIAN Nurse Practitioner; FAMILY PHYSICIAN Nurse Practitioner Adult Health | DX: R06.02 Shortness of breath (principal) | CPT/HCPCS: 93306 ==

== ENCOUNTER → 2024-07-11 12:00 | Outpatient (REF) | payer OTHER, SELFPAY | LOC: DHSLP 12:00 | PROVIDERS: ATTENDING PHYSICIAN Internal Medicine Cardiovascular Disease; FAMILY PHYSICIAN Nurse Practitioner Adult Health | DX: G47.33 Obstructive sleep apnea (adult) (pediatric) (principal); R09.02 Hypoxemia | CPT/HCPCS: 95800 ==

== ENCOUNTER → 2024-10-01 10:47 | Outpatient (REF) | payer OTHER, SELFPAY ==
[2024-10-01 11:27] LABS: ALT (SGPT) 24 U/L (0-35); AST (SGOT) 22 U/L (14-36); Albumin 4.6 g/dl (3.5-5.0); Alkaline Phosphatase 77 U/L (38-126); Blood Urea Nitrogen 21 mg/dl (7-17); Calcium 9.8 mg/dl (8.4-10.2); Carbon Dioxide 23 mmol/L (22-30); Chloride 105 mmol/L (98-107); Glucose 95 mg/dl (70-99); Potassium 4.6 mmol/L (3.5-5.1); Sodium 141 mmol/L (135-145); Total Bilirubin 0.5 mg/dl (0.2-1.3); eGFR > 60.00
[2024-10-01 12:19] LABS: Glycohemoglobin (HgbA1c) 5.4 % (4.0-5.6)
== END ==
LOC: REG 10:47
PROVIDERS: ATTENDING PHYSICIAN Nurse Practitioner Adult Health
DX: R73.03 Prediabetes (principal)
CPT/HCPCS: 36415; 80053; 83036

== ENCOUNTER → 2025-04-29 10:05 | Outpatient (REF) | payer OTHER, SELFPAY ==
[2025-04-29 11:55] LABS: % Eosinophils 2.7 % (0-6); % Immature Granulocytes 0.2 % (0-0.5); % Lymphocytes 33.4 % (20.5-51.1); % Monocytes 6.8 % (1.7-9.3); % Neutrophils 55.9 % (42.2-75.2); Absolute Basophils 0.1 10^3/uL (0-0.2); Absolute Eosinophils 0.3 10^3/uL (0-0.7); Absolute Lymphocytes 3.1 10^3/uL (1.2-3.4); Absolute Monocytes 0.6 10^3/uL (0.1-0.6); Absolute Neutrophils 5.1 10^3/uL (1.4-6.5); Hematocrit 40.1 % (37.0-47.0); Hemoglobin 13.5 g/dL (12.0-16.0); Mean Corp Hgb Conc. 33.7 g/dL (33.0-37.0); Mean Corpuscular Hgb 28.7 pg (27.0-31.0); Mean Corpuscular Volume 85.3 fL (81.0-99.0); Mean Platelet Volume 9.2 fL (7.4-10.4); Nucleated Red Blood Cells % 0 %; Platelet Count 327 10^3/uL (130-400); Red Cell Dist. Width 13.4 % (11.5-14.5); White Blood Cell Count 9.2 10^3/uL (4.8-10.8)
[2025-04-29 12:20] LABS: ALT (SGPT) 16 U/L (0-35); AST (SGOT) 16 U/L (14-36); Albumin 4.3 g/dl (3.5-5.0); Alkaline Phosphatase 74 U/L (38-126); Blood Urea Nitrogen 18 mg/dl (7-17); Calcium 9.7 mg/dl (8.4-10.2); Carbon Dioxide 25 mmol/L (22-30); Chloride 107 mmol/L (98-107); Glucose 86 mg/dl (70-99); Potassium 4.7 mmol/L (3.5-5.1); Sodium 138 mmol/L (135-145); Total Bilirubin 0.8 mg/dl (0.2-1.3); Total Protein 6.8 g/dl (6.3-8.2); eGFR > 60.00
== END ==
LOC: REG 10:05
PROVIDERS: ATTENDING PHYSICIAN Nurse Practitioner Adult Health
DX: Z51.81 Encounter for therapeutic drug level monitoring (principal); E66.01 Morbid (severe) obesity due to excess calories
CPT/HCPCS: 36415; 80053; 85025

== ENCOUNTER → 2025-06-30 07:01 | Outpatient (REF) | payer OTHER, SELFPAY ==
[2025-06-30 08:57] LABS: HDL Cholesterol 45 mg/dl; LDL Cholesterol, Calculated 140 mg/dl; Very Low Density Lipoprotein 29 mg/dl (0-30)
[2025-06-30 09:41] LABS: Glycohemoglobin (HgbA1c) 5.3 % (4.0-5.6)
[2025-06-30 13:50] LABS: Vitamin D, 25-OH*** 28.4 ng/mL (30-80)
== END ==
LOC: REG 07:01
PROVIDERS: ATTENDING PHYSICIAN Nurse Practitioner Adult Health
DX: Z13.29 Encounter for screening for other suspected endocrine disorder (principal); Z79.899 Other long term (current) drug therapy; R73.03 Prediabetes; E55.9 Vitamin D deficiency, unspecified
CPT/HCPCS: 36415; 80061; 82306; 83036; 84443